=== PATIENT | male | born 1975 | race Caucasian/White ===

== ENCOUNTER 2021-01-18 09:48 | Day surgery (SDC) | payer OTHER, SELFPAY ==
--- NOTE | 2021-01-17 07:57 | HO.ANESPROP2 ---
Documented by User: Gisella Hensley 01/17/21 07:58 HPI - Anesthesia Eval Consult details Narrative: 45yo M for Colonoscopy [facility] Past Medical History Medical History (Updated 01/18/21 @ 12:17 by Charisse Post) Asthma GERD (gastroesophageal reflux disease) Hematochezia History of cellulitis Hx of pancreatitis Sleep apnea Spontaneous pneumothorax URI (upper respiratory infection) Surgical History Surgical History History of esophagogastroduodenoscopy (EGD) Hx of pneumonectomy Social History Social History (Updated 01/18/21 @ 12:17 by Charisse Post) Smoking Status: Current every day smoker Cigarettes Per Day: 30 Years Smoked: 30 Smoked in Last 30 Days: Yes Use of substances other than those prescribed or required for medical reasons: No Have you been hit, kicked, punched, or otherwise hurt by someone within the past year? If so, by whom?: No Advance Directives: No Advance Directives Information Provided: Yes Meds Allergies Allergy/AdvReac Type Severity Reaction Status Date / Time gabapentin [GABAPENTIN] AdvReac Unknown Unknown Verified 01/18/21 10:31 Home Medications Medication Instructions Recorded Confirmed Last Taken Type albuterol sulfate [Ventolin HFA] 2 puff INHALATION Q4-6H PRN 12/27/20 12/27/20 Unknown History ibuprofen 800 mg PO Q8H PRN 12/27/20 12/27/20 Unknown History omeprazole 20 mg PO DAILY 12/27/20 12/27/20 01/18/21 08:30 History Exam Exam Date and Time: January 17, 2021 897 Assessment and Plan Assessment Anesthesia Assessment: Chart Reviewed Documented by User: Charisse Post 01/18/21 12:24 [facility] Past Medical History Medical History (Updated 01/18/21 @ 12:17 by Charisse Post) Asthma GERD (gastroesophageal reflux disease) Hematochezia History of cellulitis Hx of pancreatitis Sleep apnea Spontaneous pneumothorax URI (upper respiratory infection) Family History Family history of problems with anesthesia: No Surgical History Surgical History History of esophagogastroduodenoscopy (EGD) Hx of pneumonectomy History of Problems with Anesthesia: No Social History Social History (Updated 01/18/21 @ 12:17 by Charisse Post) Smoking Status: Current every day smoker Cigarettes Per Day: 30 Years Smoked: 30 Smoked in Last 30 Days: Yes Use of substances other than those prescribed or required for medical reasons: No Have you been hit, kicked, punched, or otherwise hurt by someone within the past year? If so, by whom?: No Advance Directives: No Advance Directives Information Provided: Yes Meds Allergies Allergy/AdvReac Type Severity Reaction Status Date / Time gabapentin [GABAPENTIN] AdvReac Unknown Unknown Verified 01/18/21 10:31 Home Medications Medication Instructions Recorded Confirmed Last Taken Type albuterol sulfate [Ventolin HFA] 2 puff INHALATION Q4-6H PRN 12/27/20 12/27/20 Unknown History ibuprofen 800 mg PO Q8H PRN 12/27/20 12/27/20 Unknown History omeprazole 20 mg PO DAILY 12/27/20 12/27/20 01/18/21 08:30 History Exam Height,Weight and Vital Signs: Vital Signs Temp Pulse Resp BP Pulse Ox 01/18/21 10:18 97.6 F 100 26 H 148/95 H 95 Airway Mallampati Class: III TM Dist: >3cm Neck ROM: Full Heart: RRR Lungs: CTAB Assessment and Plan Assessment Anesthesia Assessment: Anesthesia Plan Discussed and Chart Reviewed Final Anesthetic Review NPO: Yes ASA Class: III Final Preanesthetic Review: No Changes in Pt Med Stat, Meds/Allgs Chart Reviewed, Consent Obtained/Reviewed and Anes Risks/Benef Reviewed Patient Risk: Intermediate Procedure Risk: Low Assessment/Block/Sedation in SS: Assess/Block/Sedation-SS Anesthetic Plan Anesthetic Plan: MAC: Disposition: Standard PACU
[2021-01-18 10:17] VITALS: BMI 36.1
[2021-01-18 10:18] VITALS: BP 148/95; PULSE 100; RESP 26; TEMP 36.4; O2SAT 95
[2021-01-18] MEDS: Lactated Ringers 1,000 ML 100 ML IVCONT (10:42)
--- NOTE | 2021-01-18 11:51 | PM.OP ---
Brief Operative Note Date of Service: 01/18/21 Pre-op diagnosis: Ulcerative colitis, Screening Post-op diagnosis: other (Same, R/O dysplasia, Colon polyp) Procedure: Colonoscopy to the cecum with biopsies, and biopsy and removal of polyp Surgeon: Honorio Castellano Anesthesia: MAC Estimated blood loss (mL): 5.0 Pathology: other (A. Ascending colon B. Transverse colon C. Transverse colon polyp D. Bx from around the Transverse colon polyp E. Descending colon F. Sigmoid colon G. Rectum) Condition: stable Disposition: PACU
[2021-01-18 12:59] VITALS: BP 134/89; PULSE 94; RESP 14; TEMP 36.7; O2SAT 93
--- NOTE | 2021-01-18 12:59 | PM.OP ---
Brief Operative Note Date of Service: 01/18/21 Pre-op diagnosis: Rectal bleeding Post-op diagnosis: other (Rectal and colon polyps) Procedure: Colonoscopy to the cecum and TI with bx/removal of polyp at 20cm, and snare polypectomy x 2 from rectum Surgeon: Honorio Castellaon Anesthesia: MAC Estimated blood loss (mL): 4.0 Pathology: other (A. Polyp at 20cm B. Rectal polyps) Condition: stable Disposition: PACU
[2021-01-18 13:16] VITALS: BP 115/86; PULSE 95; RESP 16; O2SAT 98
--- NOTE | 2021-01-18 14:04 | PC.NURSE ---
Patient asked to sit in wheelchair to be brought out of hospital. Patient refused and was discharged ambulatory accompanied by RN
--- NOTE | 2021-01-18 14:15 | PC.NURSE ---
1320 MONITORS AND IVF DCD ASST OOB BS CH NOTED INCREASE RESP RATE SOB W EXERTION, IV DCD TIP INTAACT PRESSURE AND DRESSING TO SITE PT DRESSED SELF AT BS CALL WEST IN REACH, PLAN TO AMB TO DC AREA
--- NOTE | 2021-01-18 21:54 | OP_ITS ---
SURGEON: Honorio Castellano MD INDICATIONS: The patient presents for evaluation of intermittent hematochezia and rectal discomfort. Full consent has been obtained from him for this, including risks of bleeding and perforation. PREOPERATIVE DIAGNOSIS: POSTOPERATIVE DIAGNOSIS: PROCEDURE PERFORMED: Colonoscopy to the cecum and terminal ileum with biopsy and removal of polyp, and snare polypectomy x2 from distal rectum. ESTIMATED BLOOD LOSS: COMPLICATIONS: ANESTHESIA: Monitored anesthesia care. ASSISTANTS: SPECIMENS: PREOPERATIVE DIAGNOSES: Rectal bleeding and rectal discomfort. POSTOPERATIVE DIAGNOSES: Rectal bleeding and rectal discomfort, rectal polyps, sigmoid colon polyp, internal hemorrhoids. DESCRIPTION OF PROCEDURE: The patient was placed in the left lateral decubitus position. The digital rectal exam did not reveal any abnormalities. The Olympus video pediatric colonoscope was entered into the rectum and advanced easily to the cecum. Once in the cecum, I did identify normal-appearing cecal pouch with appendiceal orifice and a normal-appearing ileocecal valve. The terminal ileum was cannulated and appeared normal. The scope was withdrawn back in the colon. The entire cecum and ileocecal valve appeared normal. The scope was slowly withdrawn assessing all mucosal surfaces carefully. Preparation was excellent. At 20 cm, was an approximately 3 or 4 mm grossly adenomatous polyp, which was biopsied and completely removed with cold biopsy forceps. I did not visualize any sign of colitis nor angiodysplasia. In the rectum, scope was retroflexed visualizing some small internal hemorrhoids. Primarily in the forward viewing position, I did visualize 2 probable adenomatous polyps in the distal rectum. One was approximately 5 to 6 mm on a flat base and the other was approximately 8 to 10 mm on a flat base. These were both snared and recovered by suction and placed in the same container. The polypectomy sites appeared clean, without any sign of residual polyp nor bleeding. The remainder of the rectum appeared normal. The scope was withdrawn from the patient. He tolerated the procedure well and was returned to the recovery area in stable condition. IMPRESSION: 1. Distal rectal polyps, status post snare polypectomy. 2. Small polyp at 20 cm, status post biopsy and removal. 3. Small internal hemorrhoids. PLAN: The results of the pathology will be checked. If these are adenomas, I would recommend a followup colonoscopy in 5 years. He was advised not to use any aspirin and NSAIDs for 1 week. If the rectal discomfort and bleeding persist, I would then plan to make a referral for him to see Dr. Gonzalez for further evaluation to inspect for a small fissure or any other pathology. This has been discussed with his . MD DANG Cantu/PERLITA / [id number]
== END 2021-01-18 13:40 | disposition home or self-care (01) ==
PROVIDERS: PCP Nurse Practitioner Family; Visit Provider Internal Medicine
PROC: 0DJD8ZZ Inspection of Lower Intestinal Tract, Via Natural or Artificial Opening Endoscopic (ICD-10-PCS; CPT 45378; principal; 2021-01-18 10:50)
DX: K62.5 Hemorrhage of anus and rectum (principal); Z80.0 Family history of malignant neoplasm of digestive organs; D12.5 Benign neoplasm of sigmoid colon; K62.1 Rectal polyp; K21.9 Gastro-esophageal reflux disease without esophagitis; J45.909 Unspecified asthma, uncomplicated; G47.33 Obstructive sleep apnea (adult) (pediatric); Z87.19 Personal history of other diseases of the digestive system; Z90.2 Acquired absence of lung [part of]; Z79.899 Other long term (current) drug therapy; F17.210 Nicotine dependence, cigarettes, uncomplicated; K64.8 Other hemorrhoids
CPT/HCPCS: 45385; 45380; 88305; J2250

== ENCOUNTER → 2021-03-08 09:18 | Outpatient (BNVA) | payer SELFPAY | PROVIDERS: PCP Nurse Practitioner Family; Visit Provider Physician Assistant | DX: Z02.79 Encounter for issue of other medical certificate (principal) ==

== ENCOUNTER → 2021-06-29 13:27 | Outpatient (BNVA) | payer OTHER, SELFPAY | PROVIDERS: PCP Nurse Practitioner Family; Visit Provider Physician Assistant Medical | DX: S16.1XXA Strain of muscle, fascia and tendon at neck level, initial encounter (principal); S39.012A Strain of muscle, fascia and tendon of lower back, initial encounter; S86.919A Strain of unspecified muscle(s) and tendon(s) at lower leg level, unspecified leg, initial encounter; V69.69XA Unspecified occupant of heavy transport vehicle injured in collision with other motor vehicles in traffic accident, initial encounter | CPT/HCPCS: 72050; 99203 ==

== ENCOUNTER → 2021-07-03 13:31 | Outpatient (BNVA) | payer OTHER, SELFPAY | PROVIDERS: PCP Nurse Practitioner Family; Visit Provider Internal Medicine | DX: M79.602 Pain in left arm (principal); M79.605 Pain in left leg; M54.10 Radiculopathy, site unspecified | CPT/HCPCS: 72110; 99214 ==

== ENCOUNTER → 2021-07-13 15:26 | Outpatient (BNVA) | payer OTHER, SELFPAY | PROVIDERS: PCP Nurse Practitioner Family; Visit Provider Internal Medicine | DX: M54.2 Cervicalgia (principal); M54.5 Low back pain | CPT/HCPCS: 99213 ==

== ENCOUNTER → 2021-08-11 14:16 | Outpatient (BNVA) | payer OTHER, SELFPAY | PROVIDERS: PCP Nurse Practitioner Family; Visit Provider Internal Medicine | DX: S16.1XXD Strain of muscle, fascia and tendon at neck level, subsequent encounter (principal); V89.0XXD Person injured in unspecified motor-vehicle accident, nontraffic, subsequent encounter; M54.50 Low back pain, unspecified; M51.36 Other intervertebral disc degeneration, lumbar region | CPT/HCPCS: 99213 ==

== ENCOUNTER 2021-08-16 15:57 | Outpatient (REF) | payer OTHER, SELFPAY ==
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
--- NOTE | ~2021-08-16 | XR_ITS ---
EXAMINATION: PRE-MRI ORBIT CLINICAL INFORMATION: Rule out metal fragment COMPARISON: None TECHNIQUE: 3 views of the orbits FINDINGS: No radiopaque soft tissue foreign body about the orbits is seen. The paranasal sinuses are clear. Bony structures are unremarkable. XR/XR pre mri screening IMPRESSION: No radiopaque foreign body seen.
== END 2021-08-16 15:58 | disposition home or self-care (01) ==
LOC: HO.MRI 15:57
PROVIDERS: PCP Nurse Practitioner Family; Visit Provider Internal Medicine
DX: M54.2 Cervicalgia (principal); M79.602 Pain in left arm; M79.601 Pain in right arm
CPT/HCPCS: 72141

== ENCOUNTER 2021-09-05 11:00 | Outpatient (RCR) | payer OTHER, SELFPAY ==
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
== END 2021-09-15 15:26 | disposition home or self-care (01) ==
LOC: HO.PTCHIC 11:00
PROVIDERS: Visit Provider Internal Medicine
DX: M54.2 Cervicalgia (principal); M54.50 Low back pain, unspecified; V89.2XXD Person injured in unspecified motor-vehicle accident, traffic, subsequent encounter
CPT/HCPCS: 97014; 97110; 97140; 97162

== ENCOUNTER → 2021-09-21 13:07 | Outpatient (BNVA) | payer OTHER, SELFPAY | PROVIDERS: PCP Nurse Practitioner Family; Visit Provider Internal Medicine | DX: M54.12 Radiculopathy, cervical region (principal); M48.07 Spinal stenosis, lumbosacral region | CPT/HCPCS: 99213 ==

== ENCOUNTER 2021-10-26 18:18 | Outpatient (REF) | payer OTHER, SELFPAY ==
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
== END 2021-10-26 18:19 | disposition home or self-care (01) ==
LOC: HO.MRI 18:18
PROVIDERS: Visit Provider Internal Medicine
DX: M54.50 Low back pain, unspecified (principal)
CPT/HCPCS: 72148

== ENCOUNTER → 2021-11-09 14:49 | Outpatient (BNVA) | payer OTHER, SELFPAY | PROVIDERS: PCP Nurse Practitioner Family; Visit Provider Internal Medicine | DX: M51.26 Other intervertebral disc displacement, lumbar region (principal) | CPT/HCPCS: 99213 ==

== ENCOUNTER 2024-06-21 10:25 | Emergency (ER) | payer MEDICAID, SELFPAY ==
--- NOTE | ~2024-06-21 | XR_ITS ---
EXAMINATION: XR CHEST CLINICAL INFORMATION: Chest pain, shortness of breath COMPARISON: Chest radiograph 10/29/2018 TECHNIQUE: 2 views of the chest were obtained. FINDINGS: Mild scattered lower lung reticular opacities. No confluent consolidation. Unchanged mild blunting of the right costophrenic angle, likely scarring. No pleural effusion or pneumothorax. Cardiomediastinal silhouette is unchanged. XR/XR chest 2V IMPRESSION: Mild scattered lower lung reticular opacities, may reflect atypical/viral infection. No confluent consolidation. Electronically signed by: Melquiades Guzman MD 06/21/2024 10:49 AM EDT
[2024-06-21 10:32] VITALS: BP 139/88; PULSE 20; RESP 20; TEMP 36.3; O2SAT 95; BMI 40.5
[2024-06-21 10:54] LABS: MANUAL DIFF FLAG NO
[2024-06-21 10:56] LABS: Basophils Absolute Auto 0.1 X10*3/uL (0.0-0.2); Basophils Percent Auto 0.7 % (0-2); Eosinophils Absolute Auto 0.2 X10*3/uL (0.0-0.4); Eosinophils Percent Auto 2.9 % (0-4); Hemoglobin 14.8 g/dl (14.0-18.0); Imm Gran Abs Auto 0.01 X10*3/uL (0.00-0.03); Imm Gran Pct Auto 0.1 % (0.0-0.4); Lymphocytes Absolute Auto 1.5 X10*3/uL (1.2-4.9); Lymphocytes Percent Auto 18.2 % (20-40); Mean Corpuscular HGB Conc 34.4 g/dl (31.0-36.0); Mean Corpuscular Hemoglobin 29.9 pg (27.0-33.0); Mean Corpuscular Volume 86.9 fL (80.0-98.0); Mean Platelet Volume 9.3 fL (9.4-12.4); Monocytes Percent Auto 11.5 % (2-11); Neutrophils Absolute Auto 5.5 x10*3/uL (2.0-8.3); Neutrophils Percent Auto 66.6 % (45-73); Platelet Count 254 X10*3/uL (160-400); Red Blood Count 4.95 X10*6/uL (4.60-5.80); Red Cell Distribution Width 12.6 % (11.0-16.0); White Blood Count 8.2 X10*3/uL (4.8-10.8)
[2024-06-21 11:03] LABS: IDNOW Serial# 58CA691E; Strep A Nucleic Acid Negative (Negative)
[2024-06-21 11:07] LABS: Anion Gap 14 (12-20); Blood Urea Nitrogen 11 mg/dL (9-16); Calcium 8.9 mg/dL (8.4-10.2); Carbon Dioxide 27 mmol/L (22-29); Chloride 102 mmol/L (96-108); Creatinine Clr Calc Pharmacy 100.3; Estimated Glomerular Filt Rate > 60; Glucose Random 138 mg/dL (60-115); Sodium 139 mmol/L (135-145)
[2024-06-21 11:16] LABS: Troponin-I High Sensitivity < 2.7 ng/L (<3.5-35.0)
[2024-06-21 11:40] LABS: Influenza A PCR NEGATIVE (Negative); Influenza B PCR NEGATIVE (Negative); Resp Syncy Virus RNA Qual PCR NEGATIVE (Negative); SARS COV2 PCR INHOUSE NEGATIVE (Negative)
[2024-06-21] MEDS: dexAMETHasone sod phosphate 10 MG/ML VIAL IVPUSH (11:52)
[2024-06-21] MEDS: Amoxicillin/Potassium Clav 875 MG TABLET PO (11:52)
--- NOTE | 2024-06-21 12:32 | ED.GENADULT ---
HPI - General Adult General Chief complaint: General Medical Stated complaint: Abscess in mouth/Diff breathing Time Seen by Provider: 06/21/24 11:24 Source: patient, family, RN notes reviewed and old records reviewed Mode of arrival: ambulatory History of Present Illness ED Provider: Mery Oliva PA-C HPI narrative: 49-year-old male with a past medical history of asthma, GERD, sleep apnea, presenting to the ED complaining of URI symptoms with bilateral ear pain, dry cough, SOB, chest discomfort with coughing, congestion/rhinorrhea, sinus pressure, sore throat x 3 days. Also reports painful swallowing and poor dentition. Has been taking OTC medications without relief. Admits to RSV positive contact. Denies inability to swallow, recent travel, abdominal pain, nausea/vomiting. Related Data Home Medications ?Medication ?Instructions ?Recorded ?Confirmed albuterol sulfate 90 mcg/actuation 2 puff inhalation Q4-6H PRN 12/27/20 12/27/20 aerosol inhaler (Ventolin HFA) Shortness Of Breath Or Wheezing ibuprofen 800 mg tablet 800 mg PO Q8H PRN Pain 12/27/20 12/27/20 omeprazole 20 mg tablet,delayed 20 mg PO DAILY 12/27/20 12/27/20 release Previous Rx's ?Medication ?Instructions ?Recorded acetaminophen 500 mg tablet 500 mg PO Q6H PRN fever or pain 06/21/24 (Tylenol Extra Strength) #14 tabs amoxicillin 875 mg-potassium 1 tab PO BID 7 days #14 tabs 06/21/24 clavulanate 125 mg tablet azithromycin 250 mg tablet 250 mg PO DAILY 4 days #4 tabs 06/21/24 fluticasone propionate 50 2 spray intranasal DAILY #16 grams 06/21/24 mcg/actuation nasal spray,suspension (Flonase Allergy Relief) ibuprofen 800 mg tablet 800 mg PO Q8H PRN pain #14 tabs 06/21/24 Allergies Allergy/AdvReac Type Severity Reaction Status Date / Time gabapentin [GABAPENTIN] AdvReac Unknown Unknown Verified 06/21/24 10:36 Review of Systems Review of Systems: Yes all other systems are reviewed and are negative Constitutional: Constitutional: Reports as per [facility] Past Medical History Attestation statement: The following information was validated with the patient. Source: old records reviewed Medical History URI (upper respiratory infection) Asthma History of cellulitis Hx of pancreatitis GERD (gastroesophageal reflux disease) Hematochezia Spontaneous pneumothorax Sleep apnea Surgical History History of esophagogastroduodenoscopy (EGD) Hx of pneumonectomy Social History Social History Cigarettes Per Day: 30 Years Smoked: 30 Advance Directives: No Advance Directives Information Provided: Yes Do you have a plan to hurt others: No Plan Physical Exam ED Vital Signs: Vital Signs - 24 hr 06/21/24 10:32 06/21/24 13:26 Temperature 97.3 F 97.3 F Pulse Rate 20 L 20 L Respiratory Rate 20 20 Blood Pressure 139/88 139/88 Pulse Oximetry 95 95 Oxygen Delivery Method Room Air Room Air BMI result Body Mass Index 40.5 Const General: cooperative and no acute distress Orientation/consciousness: patient oriented x3 Limitations: no limitations HENMT Head: Yes normal to inspection and Yes atraumatic Ears: hearing grossly normal bilaterally, external ears normal, mastoids normal and TM abnormal erythematous bilateral and with fluid behind the TM bilateral General nose exam: Normal external nose present Face and sinus: Yes normal facial exam Mouth: no drooling Teeth and gingiva: poor dentition (Multiple caries. No appreciable abscess) Throat: Yes uvula midline, No peritonsillar mass, Yes posterior oropharynx abnormal (Erythematous, swollen), No uvula laterally displaced and Yes uvular edema Eyes General: appearance normal, both eyes and all related structures EOM: EOMs intact bilaterally Neck Other: + submandibular lymphadenopathy Neck: Yes normal visual inspection, Yes no meningeal signs and No anterior neck swelling Resp Effort & Inspection: normal respiratory effort, no respiratory distress and no stridor Auscultation: clear to auscultation bilaterally, no crackles, no rhonchi and no wheezes Cardio Rate: regular rate Heart sounds: S1 normal heart sound present and S2 normal heart sound present GI Inspection: Yes normal to inspection Palpation (GI): Soft to palpation, nontender, no guarding and not rigid Skin Rashes: no rashes Wounds: no wounds Neuro General: patient oriented x3, tone normal and no meningeal signs Cranial nerves: Yes CN's II-XII intact bilaterally Gait exam (Neuro): Normal gait present Extrem General: Yes normal to inspection Course Course Course Narrative: 1308--labs reassuring. Troponin negative -COVID/flu/RSV and rapid strep negative XR chest 2V IMPRESSION: Mild scattered lower lung reticular opacities, may reflect atypical/viral infection. No confluent consolidation. > patient given p.o. Augmentin and azithromycin in the ED. Results discussed with patient including worrisome signs and symptoms and strict return precautions, and when to return to the emergency department. They verbalized understanding and feel safe for discharge at this time. Medications Administered Discontinued Medications Generic Name Dose Route Start Last Admin Trade Name Freq PRN Reason Stop Dose Admin Amoxicillin/Clavulanate Potassium 875 mg 06/21/24 11:34 06/21/24 11:52 Amoxicillin/Potassium Clav 875 Mg Tablet PO 06/21/24 11:35 875 mg ONCE ONE Administration Dexamethasone Sodium Phosphate 10 mg 06/21/24 11:34 06/21/24 11:52 Dexamethasone Sod Phosphate 10 Mg/Ml Vial IVPUSH 06/21/24 11:35 10 mg ONCE ONE Administration Medical Decision Making Medical Decision Making MDM Narrative: 49-year-old male with a past medical history of asthma, GERD, sleep apnea, presenting to the ED complaining of URI symptoms with bilateral ear pain, dry cough, SOB, chest discomfort with coughing, congestion/rhinorrhea, sinus pressure, sore throat x 3 days. On exam vital signs stable, NAD, nontoxic appearing, bilateral otitis media appreciated, mastoids WNL. Uvular edema appreciated & posterior oropharyngeal erythema and swelling. Uvula midline, talking in complete sentences, no respiratory distress, lungs CTA, no stridor. Concern for viral illness vs pneumonia vs otitis and strep pharyngitis. Low suspicion for mastoiditis, ACS/PE, [employer]/retropharyngeal abscess Plan: EKG, labs, viral testing, rapid strep, CXR, p.o. antibiotics, p.o. Decadron Please refer to course for remaining clinical decision making, interpretation of labs/imaging results, and discussions with consultants and/or family members. Differential Diagnosis Differential Diagnoses: The differential diagnosis associated with the presentation includes As above Admission/Observation Consideration of admission/observation: Escalation of care including admission/observation considered Lab Data MDM Lab Attestation statement: I reviewed the patient's lab results. 06/21/24 10:50 06/21/24 10:50 Labs: Lab Results 06/21/24 Range/Units 10:50 WBC 8.2 (4.8-10.8) X10*3/uL RBC 4.95 (4.60-5.80) X10*6/uL Hgb 14.8 (14.0-18.0) g/dl Hct 43.0 (42.0-52.0) % MCV 86.9 (80.0-98.0) fL MCH 29.9 (27.0-33.0) pg MCHC 34.4 (31.0-36.0) g/dl RDW 12.6 (11.0-16.0) % Plt Count 254 (160-400) X10*3/uL MPV 9.3 L (9.4-12.4) fL Immature Gran % (Auto) 0.1 (0.0-0.4) % Neut % (Auto) 66.6 (45-73) % Lymph % (Auto) 18.2 L (20-40) % Leslie % (Auto) 11.5 H (2-11) % Eos % (Auto) 2.9 (0-4) % Baso % (Auto) 0.7 (0-2) % Lymph # (Auto) 1.5 (1.2-4.9) X10*3/uL Leslie # (Auto) 1.0 (0.1-1.2) X10*3/uL Eos # (Auto) 0.2 (0.0-0.4) X10*3/uL Baso # (Auto) 0.1 (0.0-0.2) X10*3/uL Abs Immat Gran (auto) 0.01 (0.00-0.03) X10*3/uL Absolute Neuts (auto) 5.5 (2.0-8.3) x10*3/uL Absolute Nucleated RBC 0.000 (0.0-0.012) X10*3/uL Nucleated RBC % (auto) 0.0 (0.0-0.2) /100WBC Sodium 139 (135-145) mmol/L Potassium 4.0 (3.3-5.1) mmol/L Chloride 102 (96-108) mmol/L Carbon Dioxide 27 (22-29) mmol/L Anion Gap 14 (12-20) BUN 11 (9-16) mg/dL Creatinine 1.16 (0.5-1.4) mg/dL Estim Creat Clear Calc 100.3 Estimated GFR > 60 Random Glucose 138 H (60-115) mg/dL Calcium 8.9 (8.4-10.2) mg/dL Troponin I High Sens < 2.7 (<3.5-35.0) ng/L Influenza Type A (PCR) NEGATIVE (Negative) Influenza Type B (PCR) NEGATIVE (Negative) RSV RNA Qual (PCR) NEGATIVE (Negative) SARS-CoV-2 RNA (RT-PCR) NEGATIVE (Negative) S. pyogenes GrpA KEIKO Negative (Negative) Independent Interpretation I performed an independent interpretation of an: EKG (My interpretation EKG normal sinus rhythm rate of 71. MD interval 170. QTC 454. No STEMI) Radiology Impression Discussion of test interpretation with radiology: I have reviewed the radiologist's reading. Independent Historian Clinical information obtained from an independent historian. History obtained from or confirmed by: Spouse External Record Review External record reviewed: Inpatient record, Office record, Outpatient record, Prior outpatient labs, Prior outpatient radiology, Primary care record and Outside ED record Tests considered The following testing was considered but not selected: As above Prescription Management I considered prescription management with: Pain Medication and Antibiotic Chronic Conditions Patient?s care impacted by: Other Discharge Plan Discharge Clinical Impression: Pneumonia, Uvular edema, Otitis media Patient Disposition: Home, Self-Care Instructions: Ear Infection (ED), Pneumonia (ED) Additional Instructions: You have bilateral ear infections as well as suspected pneumonia Augmentin and azithromycin or antibiotics continue to take as prescribed until completion Flonase is a nasal decongestant In addition take Tylenol and ibuprofen Please have close follow-up with her doctor If symptoms persist or worsen, you have difficulty or inability to swallow, persistent or worsening chest pain or shortness of breath return to the emergency department Prescriptions: New amoxicillin-pot clavulanate 875-125 mg tablet 1 tab PO BID 7 Days Qty: 14 0RF azithromycin 250 mg tablet 250 mg PO DAILY 4 Days Qty: 4 0RF Rx Instructions: start on day 2 of therapy ibuprofen 800 mg tablet 800 mg PO Q8H PRN (Reason: pain) Qty: 14 0RF acetaminophen [Tylenol Extra Strength] 500 mg tablet 500 mg PO Q6H PRN (Reason: fever or pain) Qty: 14 0RF fluticasone propionate [Flonase Allergy Relief] 50 mcg/actuation spray,suspension 2 spray intranasal DAILY Qty: 16 0RF Rx Instructions: administer into each nostril No Action ibuprofen 800 mg Tablet 800 mg PO Q8H PRN (Reason: Pain) omeprazole 20 mg Tablet,Delayed Release (Dr/Ec) 20 mg PO DAILY albuterol sulfate [Ventolin HFA] 90 mcg/actuation Hfa Aerosol Inhaler 2 puff INHALATION Q4-6H PRN (Reason: Shortness Of Breath Or Wheezing) Referrals: Physician,Unknown J [Primary Care Provider] - 3 days Stand Alone Forms: Work/School Release Interventions: ED Discharge Assessment Last Done: 06/21/24 13:26 Discharge Date/Time: 06/21/24 13:26 Print Language: Senegalese
[2024-06-21 13:26] VITALS: BP 139/88; PULSE 20; RESP 20; TEMP 36.3; O2SAT 95
== END 2024-06-21 13:26 | disposition home or self-care (01) ==
PROVIDERS: Emergency Provider Emergency Medicine Emergency Medical Services
DX: J18.9 Pneumonia, unspecified organism (principal); K12.2 Cellulitis and abscess of mouth; H66.93 Otitis media, unspecified, bilateral; R06.02 Shortness of breath; R07.89 Other chest pain; Z79.899 Other long term (current) drug therapy; Z03.818 Encounter for observation for suspected exposure to other biological agents ruled out
CPT/HCPCS: 0241U; 71046; 80048; 84484; 85025; 87651; 96374; 99283; 99284; J1100

== ENCOUNTER 2025-02-07 16:51 | Emergency (ER) | payer MEDICAID, SELFPAY ==
--- NOTE | ~2025-02-07 | XR_ITS ---
CLINICAL HISTORY: couhging. Chest pain 1 view chest x-ray Comparison: None Findings: Heart size is normal. No consolidation, significant pleural effusion or pneumothorax. Apparent mild interstitial prominence could be spurious due to technique. No acute fracture. IMPRESSION: 1. Apparent mild interstitial prominence could be spurious due to technique. This document has been electronically signed by: Cindy Stone MD on 02/07/2025 18:08:22
--- NOTE | 2025-02-07 16:54 | ECG_ITS ---
Test Reason : chest pain Blood Pressure : */* mmHG Vent. Rate : 99 BPM Atrial Rate : 99 BPM P-R Int : 168 ms QRS Dur : 96 ms QT Int : 378 ms P-R-T Axes : 26 22 85 degrees QTcB Int : 485 ms Normal sinus rhythm Prolonged QT Abnormal ECG When compared with ECG of 29-Jan-2019 19:51, No significant change was found Referred By: Chris Day Electronically Signed By: Leon Ramirez
[2025-02-07 17:07] VITALS: BP 148/101; PULSE 100; RESP 19; TEMP 36.6; O2SAT 94; BMI 38.1
--- NOTE | 2025-02-07 17:13 | ED.CHESTPAIN ---
HPI - Chest Pain General Chief Complaint: Chest Pain Stated Complaint: Chest Pain Time Seen by Provider: 02/07/25 18:18 Source: patient Limitations: no limitations History of Present Illness ED Provider: Nikki Matta PA-C HPI narrative: 50-year-old male with a history of morbid obesity, COPD with ongoing tobacco abuse, who presents with multiple complaints. Patient states he has been having intermittent anterior chest discomfort over the past 5 days. Unable to describe the nature of his symptoms. Denies new cough or cold symptoms, fever, shortness of breath, wheezing or accessory use of his home nebulizer. Patient has a chronic smoker's cough at baseline. Patient also complains of scalp pain, he states he has been treated for folliculitis. Denies purulent drainage from any of the lesions. Lastly, patient complains of ongoing nasal congestion and fullness of his ears for ?3 years?. Patient denies that he has seasonal allergies. Patient is also being treated for a dental abscess he is on amoxicillin. Related Data Home Medications ?Medication ?Instructions ?Recorded ?Confirmed albuterol sulfate 90 mcg/actuation 2 puff inhalation Q4-6H PRN 12/27/20 12/27/20 aerosol inhaler (Ventolin HFA) Shortness Of Breath Or Wheezing ibuprofen 800 mg tablet 800 mg PO Q8H PRN Pain 12/27/20 12/27/20 omeprazole 20 mg tablet,delayed 20 mg PO DAILY 12/27/20 12/27/20 release Previous Rx's ?Medication ?Instructions ?Recorded acetaminophen 500 mg tablet 500 mg PO Q6H PRN fever or pain 06/21/24 (Tylenol Extra Strength) #14 tabs amoxicillin 875 mg-potassium 1 tab PO BID 7 days #14 tabs 06/21/24 clavulanate 125 mg tablet azithromycin 250 mg tablet 250 mg PO DAILY 4 days #4 tabs 06/21/24 fluticasone propionate 50 2 spray intranasal DAILY #16 grams 06/21/24 mcg/actuation nasal spray,suspension (Flonase Allergy Relief) ibuprofen 800 mg tablet 800 mg PO Q8H PRN pain #14 tabs 06/21/24 mupirocin 2 % topical ointment 1 appl topical TID #15 grams 02/07/25 prednisone 20 mg tablet 40 mg (2 x 20 mg) PO DAILY #8 tabs 02/07/25 Allergies Allergy/AdvReac Type Severity Reaction Status Date / Time tramadol Allergy Unknown Verified 02/07/25 17:10 gabapentin [GABAPENTIN] AdvReac Unknown Unknown Verified 02/07/25 17:10 Review of Systems Review of Systems: Yes all other systems are reviewed and are negative Constitutional: Constitutional: Denies fatigue and Denies fever(s) ENT: Reports otalgia and Reports nasal congestion Cardiovascular: Cardiovascular: Reports chest pain and Denies dyspnea Respiratory: Respiratory: Denies cough, Denies dyspnea and Denies wheezing Integumentary/Breasts: Comments: Folliculitis Endocrine: Endocrine: Denies fatigue Allergic/Immunologic: Allergic/Immunologic: Denies wheezing [facility] Past Medical History Attestation statement: The following information was validated with the patient. Medical History URI (upper respiratory infection) Asthma History of cellulitis Hx of pancreatitis GERD (gastroesophageal reflux disease) Hematochezia Spontaneous pneumothorax Sleep apnea Surgical History History of esophagogastroduodenoscopy (EGD) Hx of pneumonectomy Social History Social History Cigarettes Per Day: 30 Years Smoked: 30 Smoked in Last 30 Days: Yes Use of substances other than those prescribed or required for medical reasons: No Advance Directives: No Advance Directives Information Provided: Yes Do you have a plan to hurt others: No Plan Physical Exam Vital Signs: Vital Signs: Last Vital Signs Temp 98.0 F 02/07/25 19:31 Pulse 91 02/07/25 19:31 Resp 20 02/07/25 19:31 BP 125/84 02/07/25 19:31 Pulse Ox 92 02/07/25 19:31 O2 Del Method Room Air 02/07/25 19:31 BMI result Body Mass Index 38.1 Const: Other: Alert Orientation/consciousness: patient oriented x3 HEENT: Other: Bilateral TMs are dull, no tragal tenderness, no exudate and external ear canal, cerumen noted bilaterally Resp: Other: Nonlabored respirations, lungs clear to auscultation no wheezing Cardio: Other: Normal peripheral perfusion Skin: Other: Scattered regions of folliculitis with a posterior scalp Neuro: General: patient oriented x3, gait normal, no focal motor deficits and CN's II-XI intact bilaterally Psych: Other: Cooperative Course Course Course Narrative: RME: 50-year-old male presents to ED for chest pain for 3 days with cough losartan 2nd 3rd fingers numbness, posterior scalp irritation in right ear drainage. Patient states right ear drainage for months. O2 sat 93 94%. Patient has history of COPD asthma still smokes. ED bronchodilator ordered EKG labs x-ray ordered. Reevaluation(s) Reevaluation #1: Patient was ambulated, he maintains 92% on room air, this is appropriate for his underlying tobacco abuse and COPD Medications Administered Discontinued Medications Generic Name Dose Route Start Last Admin Trade Name Freq PRN Reason Stop Dose Admin Albuterol Sulfate 2.5 mg/ 0 mg 02/07/25 18:11 02/07/25 18:18 Albuterol/Ipratropium 3 ml INHALE 02/07/25 18:12 5 dose ONCE ONE Administration Prednisone 40 mg 02/07/25 18:54 02/07/25 19:08 Prednisone 20 Mg Tablet PO 02/07/25 18:55 40 mg ONCE ONE Administration Medical Decision Making Medical Decision Making MDM Narrative: 50-year-old male with a history of morbid obesity, COPD with ongoing tobacco abuse, who presents with multiple complaints. Patient states he has been having intermittent anterior chest discomfort over the past 5 days. Unable to describe the nature of his symptoms. Denies new cough or cold symptoms, fever, shortness of breath, wheezing or accessory use of his home nebulizer. Patient has a chronic smoker's cough at baseline. Patient also complains of scalp pain, he states he has been treated for folliculitis. Denies purulent drainage from any of the lesions. Lastly, patient complains of ongoing nasal congestion and fullness of his ears for ?3 years?. Patient denies that he has seasonal allergies. Patient is also being treated for a dental abscess he is on amoxicillin. Problem: Obesity, COPD, tobacco abuse History: Per patient I have considered the following differential diagnoses: ACS, COPD exacerbation, viral syndrome, pneumonia, bronchitis, folliculitis, om, OE, serous otitis, mastoiditis Plan: In regard to the patient's chest discomfort ACS was considered, although it was highly atypical, screening labs including a cardiac enzymes EKG and chest x-ray were obtained from triage. Patient received an updraft, I am not classify this as a true COPD exacerbation, he is not hypoxic, he has not had cough, he had 1 updraft, he was not wheezing in triage. Regard to the folliculitis, we will send with mupirocin. The patient has chronic nasal and ear congestion, I relayed to him that his tobacco use is the likely cause. We will send with home care instructions. He does have evidence of serous otitis on exam. I have independently reviewed the following tests: Labs: No leukocytosis, not anemic, no electrolyte abnormality, viral panel negative, troponin negative, EKG: Normal sinus rhythm, rate of 99, no ischemic changes no ectopy QTC 485 Chest x-ray:indings: Heart size is normal. No consolidation, significant pleural effusion or pneumothorax. Apparent mild interstitial prominence could be spurious due to technique. No acute fracture. IMPRESSION: 1. Apparent mild interstitial prominence could be spurious due to technique. Lab Data 02/07/25 17:27 02/07/25 17:27 Labs: Lab Results 02/07/25 Range/Units 17:27 WBC 7.0 (4.8-10.8) X10*3/uL RBC 5.26 (4.60-5.80) X10*6/uL Hgb 15.9 (14.0-18.0) g/dl Hct 44.9 (42.0-52.0) % MCV 85.4 (80.0-98.0) fL MCH 30.2 (27.0-33.0) pg MCHC 35.4 (31.0-36.0) g/dl RDW 12.4 (11.0-16.0) % Plt Count 278 (160-400) X10*3/uL MPV 9.3 L (9.4-12.4) fL Immature Gran % (Auto) 0.6 H (0.0-0.4) % Neut % (Auto) 54.6 (45-73) % Lymph % (Auto) 32.2 (20-40) % [place] % (Auto) 7.8 (2-11) % Eos % (Auto) 3.9 (0-4) % Baso % (Auto) 0.9 (0-2) % Lymph # (Auto) 2.3 (1.2-4.9) X10*3/uL [place] # (Auto) 0.6 (0.1-1.2) X10*3/uL Eos # (Auto) 0.3 (0.0-0.4) X10*3/uL Baso # (Auto) 0.1 (0.0-0.2) X10*3/uL Abs Immat Gran (auto) 0.04 H (0.00-0.03) X10*3/uL Absolute Neuts (auto) 3.8 (2.0-8.3) x10*3/uL Absolute Nucleated RBC 0.000 (0.0-0.012) X10*3/uL Nucleated RBC % (auto) 0.0 (0.0-0.2) /100WBC Sodium 140 (135-145) mmol/L Potassium 3.7 (3.3-5.1) mmol/L Chloride 106 (96-108) mmol/L Carbon Dioxide 23 (22-29) mmol/L Anion Gap 15 (12-20) BUN 13 (9-16) mg/dL Creatinine 0.92 (0.5-1.4) mg/dL Estim Creat Clear Calc 136.3 Estimated GFR > 60 Random Glucose 204 H (60-115) mg/dL Calcium 8.9 (8.4-10.2) mg/dL Total Bilirubin 0.3 (0.0-1.0) mg/dL AST 21 (5-37) U/L ALT 20 (0-40) U/L Alkaline Phosphatase 62 (39-117) U/L Troponin I High Sens < 2.7 (<3.5-35.0) ng/L B-Natriuretic Peptide < 10 (<100) pg/mL Total Protein 6.9 (6.5-8.0) g/dL Albumin 3.9 (3.5-5.0) g/dL Influenza Type A (PCR) NEGATIVE (Negative) Influenza Type B (PCR) NEGATIVE (Negative) RSV RNA Qual (PCR) NEGATIVE (Negative) SARS-CoV-2 RNA (RT-PCR) NEGATIVE (Negative) Discharge Plan Discharge Clinical Impression: Folliculitis, Chest pain, COPD (chronic obstructive pulmonary disease), Serous otitis media, Chronic nasal congestion Patient Disposition: Home, Self-Care Instructions: COPD (Chronic Obstructive Pulmonary Disease) (ED), Folliculitis (ED), Noncardiac Chest Pain (ED), Serous Otitis Media (ED) Additional Instructions: In regard to the chest pain, this is not cardiac in origin. All of your screening labs including a cardiac enzymes were negative, there were no concerning changes on your EKG in the chest x-ray is clear. I am treating you for mild COPD exacerbation, use your home nebulizer as directed, take the steroid as directed, you do not require any additional steroid until tomorrow. In regard to your chronic nasal congestion, this causes fluid within your inner ear, this is called serous otitis. It was not an infection. It was congestion. You can use [id number] Zyrtec or Claritin, daily, indefinitely. This will help alleviate the fluid within the inner ear and your nasal/sinus congestion. Lastly, in regard to the folliculitis of the scalp, you can use an [id number] shampoo such as head and shoulders, and use the mupirocin ointment as directed. Continue to follow up with your primary care provider as needed. Prescriptions: New prednisone 20 mg tablet 40 mg PO DAILY Qty: 8 0RF mupirocin 2 % ointment 1 appl topical TID Qty: 15 0RF No Action ibuprofen 800 mg Tablet 800 mg PO Q8H PRN (Reason: Pain) omeprazole 20 mg Tablet,Delayed Release (Dr/Ec) 20 mg PO DAILY albuterol sulfate [Ventolin HFA] 90 mcg/actuation Hfa Aerosol Inhaler 2 puff INHALATION Q4-6H PRN (Reason: Shortness Of Breath Or Wheezing) amoxicillin-pot clavulanate 875-125 mg tablet 1 tab PO BID 7 Days Qty: 14 0RF azithromycin 250 mg tablet 250 mg PO DAILY 4 Days Qty: 4 0RF Rx Instructions: start on day 2 of therapy ibuprofen 800 mg tablet 800 mg PO Q8H PRN (Reason: pain) Qty: 14 0RF acetaminophen [Tylenol Extra Strength] 500 mg tablet 500 mg PO Q6H PRN (Reason: fever or pain) Qty: 14 0RF fluticasone propionate [Flonase Allergy Relief] 50 mcg/actuation spray,suspension 2 spray intranasal DAILY Qty: 16 0RF Rx Instructions: administer into each nostril Interventions: ED Discharge Assessment Last Done: 02/07/25 19:31 Discharge Date/Time: 02/07/25 19:32 Print Language: Bulgarian
[2025-02-07 17:32] LABS: MANUAL DIFF FLAG NO
[2025-02-07 17:33] LABS: Basophils Absolute Auto 0.1 X10*3/uL (0.0-0.2); Basophils Percent Auto 0.9 % (0-2); Eosinophils Absolute Auto 0.3 X10*3/uL (0.0-0.4); Eosinophils Percent Auto 3.9 % (0-4); Hematocrit 44.9 % (42.0-52.0); Hemoglobin 15.9 g/dl (14.0-18.0); Imm Gran Abs Auto 0.04 X10*3/uL (0.00-0.03); Imm Gran Pct Auto 0.6 % (0.0-0.4); Lymphocytes Absolute Auto 2.3 X10*3/uL (1.2-4.9); Lymphocytes Percent Auto 32.2 % (20-40); Mean Corpuscular HGB Conc 35.4 g/dl (31.0-36.0); Mean Corpuscular Hemoglobin 30.2 pg (27.0-33.0); Mean Corpuscular Volume 85.4 fL (80.0-98.0); Mean Platelet Volume 9.3 fL (9.4-12.4); Monocytes Absolute Auto 0.6 X10*3/uL (0.1-1.2); Monocytes Percent Auto 7.8 % (2-11); Neutrophils Absolute Auto 3.8 x10*3/uL (2.0-8.3); Neutrophils Percent Auto 54.6 % (45-73); Platelet Count 278 X10*3/uL (160-400); Red Blood Count 5.26 X10*6/uL (4.60-5.80); Red Cell Distribution Width 12.4 % (11.0-16.0)
[2025-02-07 17:53] LABS: B Type Natriuretic Peptide < 10 pg/mL (<100)
[2025-02-07 17:55] LABS: Alanine Aminotransferase 20 U/L (0-40); Albumin Level 3.9 g/dL (3.5-5.0); Anion Gap 15 (12-20); Aspartate Amino Transferase 21 U/L (5-37); Bilirubin Total 0.3 mg/dL (0.0-1.0); Blood Urea Nitrogen 13 mg/dL (9-16); Calcium 8.9 mg/dL (8.4-10.2); Carbon Dioxide 23 mmol/L (22-29); Chloride 106 mmol/L (96-108); Creatinine Clr Calc Pharmacy 136.3; Estimated Glomerular Filt Rate > 60; Glucose Random 204 mg/dL (60-115); Potassium 3.7 mmol/L (3.3-5.1); Sodium 140 mmol/L (135-145); Total Protein 6.9 g/dL (6.5-8.0)
[2025-02-07 17:58] LABS: Troponin-I High Sensitivity < 2.7 ng/L (<3.5-35.0)
[2025-02-07 18:08] LABS: Influenza A PCR NEGATIVE (Negative); Influenza B PCR NEGATIVE (Negative); Resp Syncy Virus RNA Qual PCR NEGATIVE (Negative); SARS COV2 PCR INHOUSE NEGATIVE (Negative)
[2025-02-07 18:15] LABS: Alkaline Phosphatase 62 U/L (39-117)
[2025-02-07 18:18] VITALS: PULSE 93; RESP 16; O2SAT 95
[2025-02-07] MEDS: Albuterol Sulfate 2.5 MG, Albuterol/Iprat 2.5/0.5MG 3 ML 3 ML INHALE (18:18)
[2025-02-07 18:34] VITALS: BP 130/86; PULSE 100; RESP 20; TEMP 36.4; O2SAT 92
--- NOTE | 2025-02-07 18:58 | MHC.EDTECH ---
pt ambulated and lowest O2 sat was 92%, provider aware.
[2025-02-07] MEDS: predniSONE 20 MG TABLET 40 MG PO (19:08)
[2025-02-07 19:31] VITALS: BP 125/84; PULSE 91; RESP 20; TEMP 36.7; O2SAT 92
== END 2025-02-07 19:32 | disposition home or self-care (01) ==
PROVIDERS: Physician Assistant; Emergency Provider Emergency Medicine; PCP Physician Assistant Surgical
DX: L73.9 Follicular disorder, unspecified (principal); H65.90 Unspecified nonsuppurative otitis media, unspecified ear; J44.9 Chronic obstructive pulmonary disease, unspecified; R09.81 Nasal congestion; R07.9 Chest pain, unspecified; Z79.899 Other long term (current) drug therapy; Z03.818 Encounter for observation for suspected exposure to other biological agents ruled out
CPT/HCPCS: 0241U; 71045; 80053; 83880; 84484; 85025; 93005; 94640; 99284; 99285

== ENCOUNTER → 2025-02-07 16:54 | Outpatient (BNV) | payer MEDICAID, SELFPAY | PROVIDERS: Emergency Provider Emergency Medicine; PCP Physician Assistant Surgical; Visit Provider Internal Medicine Cardiovascular Disease | DX: I45.81 Long QT syndrome (principal) | CPT/HCPCS: 93010 ==

== ENCOUNTER → 2025-02-07 17:13 | Outpatient (BNV) | payer MEDICAID, SELFPAY | PROVIDERS: PCP Physician Assistant Surgical; Visit Provider Specialist | DX: R07.89 Other chest pain (principal); R05.9 Cough, unspecified | CPT/HCPCS: 71045 ==

== ENCOUNTER → 2025-03-03 10:03 | Outpatient (BNVA) | payer SELFPAY | PROVIDERS: PCP Physician Assistant Surgical; Visit Provider Physician Assistant | DX: Z02.79 Encounter for issue of other medical certificate (principal) ==